=== PATIENT | male | born 1955 | race Caucasian/White ===

== ENCOUNTER 2021-08-04 09:42 | Outpatient (CLI) | payer MEDICARE | END 2021-08-04 23:59 | disposition home or self-care (01) | LOC: CARD 09:42 | PROVIDERS: ATTEND Internal Medicine | DX: R93.1 Abnormal findings on diagnostic imaging of heart and coronary circulation (principal); I10 Essential (primary) hypertension; R06.02 Shortness of breath | CPT/HCPCS: 93017 ==